=== PATIENT | male | born 1975 | race Caucasian/White ===

== ENCOUNTER 2024-10-16 10:40 | Emergency (ER) | payer OTHER, SELFPAY ==
[2024-10-16 10:45] VITALS: BP 131/86
[2024-10-16 11:12] VITALS: BP 142/85
[2024-10-16 11:54] VITALS: BMI 32.1
--- NOTE | 2024-10-16 11:58 | ED.GENMED ---
History of Present Illness
General
Chief Complaint: Chest Pain
Source: patient
Time Seen by Provider: 10/16/24 11:49
History of Present Illness
History of Present Illness:
48-year-old male presents to the emergency room complaining of left-sided chest pain. Pain has been present to 1 form or another for the past 2 weeks. Patient states that discomforts become more frequent and more persistent over the past few days.
Today the pain has been almost constant. Exertion seems to make it worse but it also can get worse without provocation. He does feel short of breath at times. Patient made an appointment with his credit collections rep for next week. However because the
pain was more significant today he thought he should be evaluated. Patient was recently hospitalized at [facility] for a left foot infection.
Past History
Past History
ED Past Medical History: CAD, HTN, Hypercholesterolemia, NIDDM, NC, Renal failure and Other (dvt)
ED Past Surgical History: Cardiac, Orthopedic (Right lower extremity BKA), Tonsilectomy and Other (right eye vitrectomy, left eye retina detachment)
Social History
Tobacco: Non-smoker
Alcohol: Occasional
Drug: None
Personal:
Living: with family
Employment: Retired
Phy Exam
Physical Exam
Physical Exam:
General: Awake, Alert, Oriented X3. No acute distress.
Vitals: unremarkable
Head: Atraumatic
Eyes: Pupils equal, EOMI
Throat: Airway intact, no exudates
Neck: Trachea midline
Lungs: Clear and equal b/l
Heart: Regular rate, no murmurs
Abd: Soft, Nontender, No pulsatile mass
Neuro: Nonfocal
Skin: Warm, dry, no rash
Extremities: pulses equal b/l, no edema. Right BKA
Scores
Heart Score for Chest Pain Patients
STEMI patient?: No
History: Slightly or Non-Suspicious
ECG: Nonspecific Repolarization
Age: >45 - <65 years
Risk Factors: 1 or 2 Risk Factors
Troponin: </= Normal Limit
Heart Score for Chest Pain Patients: 3
Heart Score Risk: 2.5% MACE over next 6 weeks
Course
Orders/Labs/Results
Orders:
Orders
10/16/24 10:41
ECG [Electrocardiogram (*1)] Urgent
Reason for Study: Chest Pain
EKG- Treatment ONCE
10/16/24 11:51
Complete Blood Count/With Diff Urgent
Comprehensive Metabolic Panel Urgent
Lipase Urgent
Troponin I Urgent
10/16/24 11:55
CR Chest - 2 Views Urgent
Comment:
Reason For Exam: chest pain
10/16/24 12:36
D-Dimer Urgent
Abnormal Lab Results
10/16/24
11:51
Absolute Lymphs (auto) 0.7 L 10^3/uL
(1.2-3.4)
Absolute Eos (auto) 1.3 H 10^3/uL
(0-0.7)
Lymphocytes % 8.7 L %
(20.5-51.1)
Eosinophils % 15.6 H %
(0-6)
BUN 22 H mg/dl
(9-20)
Creatinine 1.5 H mg/dL
(0.7-1.3)
Glucose 204 H mg/dl
(70-99)
10/16/24 11:51
10/16/24 11:51
Vital Signs
Initial and Last Documented VS:
Initial Vital Signs
Temp Pulse Resp BP Pulse Ox
97.4 F 72 16 131/86 98
10/16/24 10:45 10/16/24 10:45 10/16/24 10:45 10/16/24 10:45 10/16/24 10:45
Last Documented Vital Signs
Temp Pulse Resp BP Pulse Ox
97.4 F 68 13 127/82 96
10/16/24 10:45 10/16/24 15:00 10/16/24 15:00 10/16/24 15:00 10/16/24 14:00
MDM/Problems Addressed
Differential Diagnosis Includes:
NSTEMI, ACS, chest wall pain, pneumothorax, PE
MDM/Problems Addressed:
Patient presents with left-sided chest pain. No ischemic changes on EKG. Troponin is normal. Troponin was drawn greater than 3 hours after the onset of his discomfort today. D-dimer is normal. Patient is not tachycardic. He is not hypoxic. He
is not tachypneic. Unclear etiology of the patient's chest pain but we have adequately excluded PE or ACS. Recommend cardiology follow-up and the patient does not fact have a appointment with his credit collections rep in the coming week. We still put him
on the chest pain hotline. Stable for discharge home. Return for any concerns.
*Radiology
Radiology exam reviewed: preliminary read by ED provider (No acute disease on my review of the patient's chest x-ray)
*Pulse Oximetry
SaO2: 98
Oxygen Mode of Delivery: Room air
Patient hypoxic: no
*EKG
Interpreted by ED Provider?: Yes
Heart Rate: 68
Rate: normal
Rhythm: sinus
QRS Pattern: right bundle branch block
Ischemia: non-specific ST changes
*Regional Guide Interpretation
Rate: normal
Interpretation: normal
Rhythm: sinus
*Critical Care Note
Total Time (30-74mins, 75-104mins- exclusive of procedures): Not Applicable
ED Attending Note
-
Portions of this chart may have been created with voice recognition software.� Occasional wrong word or��sound alike� substitutions may have occurred due to the inherent limitations of voice recognition software.
Discharge Plan
Departure
Patient Disposition: Home (Routine Discharge)
Date of Disposition: 10/16/24
Time of Disposition: 13:42
Patient with high blood pressure during this ER visit?: No
Condition: Good
Discharge Problem:
Chest pain
Instructions: Chest Pain DCA Follow Up
Prescriptions:
No Action
ranolazine 500 MG tablet extended release 12 hr
1,000 mg PO BID
hydralazine 50 MG tablet
75 mg PO BID
rosuvastatin [Crestor] 40 MG tablet
40 mg PO DAILY
clopidogrel 75 MG tablet
75 mg PO DAILY Qty: 90 3RF
insulin glargine [Lantus U-100 Insulin] 1,000 UNITS/10 ML solution
65 units SC HS
metoprolol succinate 50 MG tablet extended release 24 hr
50 mg PO HS
aspirin 81 MG tablet,delayed release (DR/EC)
81 mg PO DAILY
insulin lispro [Humalog U-100 Insulin] 100 UNIT/ML solution
30 - 35 unit SC AC
Patient Comments:
80-120 0 units
121-200 20 units
201-250 25 units
251-300 30 units
metoprolol succinate 100 MG tablet extended release 24 hr
100 mg PO DAILY
isosorbide mononitrate 30 MG tablet extended release 24 hr
30 mg PO DAILY Qty: 1 0RF
nitroglycerin 0.4 MG tablet, sublingual
0.4 mg sublingual [id number] PRN (Reason: chest pain) Qty: 25 0RF
amlodipine 5 MG tablet
5 mg PO BID Qty: 60 11RF
Rx Instructions:
Increase amlodipine to 5 mg (two 2.5 mg tablets or one 5 mg tablet) twice a day
pregabalin 25 MG capsule
25 mg PO BID Qty: 60 6RF
Referrals:
Tea Arboleda MD [Family Provider, Family Practice]
Interventions
Interventions:
*Risk Screen - Suicide Last Done: 10/16/24 10:45
*General Assessment Last Done: 10/16/24 11:54
*Neglect/Abuse Screening Last Done: 10/16/24 10:45
*ED- Fall Risk Assessment Last Done: 10/16/24 15:09
*ED COVID-19 Vaccine History Last Done: 10/16/24 11:54
*Nursing Disposition Last Done: 10/16/24 15:09
ED- Cardiac Assessment Last Done: 10/16/24 12:15
Discharge Date and Time
Discharge Date/Time: 10/16/24 15:10
Print Language: AUSTRALIAN
[2024-10-16 12:00] VITALS: BP 144/90
[2024-10-16 12:01] LABS: Hematocrit 48.8 % (39.0-52.0); Hemoglobin 16.3 g/dL (13.0-18.0); Mean Corp Hgb Conc. 33.4 g/dL (33.0-37.0); Mean Corpuscular Volume 87.1 fL (80.0-94.0); Nucleated Red Blood Cells % 0 % (-); Platelet Count 133 10^3/uL (130-400); Red Cell Dist. Width 13.2 % (11.5-14.5)
[2024-10-16 12:30] LABS: Troponin I < 0.012 ng/ml
[2024-10-16 12:35] LABS: ALT (SGPT) 36 U/L (0-50); AST (SGOT) 20 U/L (17-59); Albumin 4.0 g/dl (3.5-5.0); Alkaline Phosphatase 89 U/L (38-126); Blood Urea Nitrogen 22 mg/dl (9-20); Calcium 9.4 mg/dl (8.4-10.2); Carbon Dioxide 27 mmol/L (22-30); Chloride 105 mmol/L (98-107); Estimated Creatinine Clearance 70 ml/min; Glucose 204 mg/dl (70-99); Lipase 118 U/L (23-300); Potassium 5.0 mmol/L (3.5-5.1); Sodium 137 mmol/L (135-145); Total Protein 6.3 g/dl (6.3-8.2); eGFR 56.37
[2024-10-16 12:57] LABS: D-Dimer 0.39 ug/mlFEU (0.00-0.50)
[2024-10-16 13:21] VITALS: BP 131/80
[2024-10-16 14:00] VITALS: BP 119/81
[2024-10-16 15:00] VITALS: BP 127/82
== END 2024-10-16 15:10 | disposition home or self-care (01) ==
LOC: EMR 10:40
PROVIDERS: EMERGENCY PHYSICIAN Emergency Medicine; FAMILY PHYSICIAN Family Medicine
DX: R07.9 Chest pain, unspecified (principal); E11.9 Type 2 diabetes mellitus without complications; I25.10 Atherosclerotic heart disease of native coronary artery without angina pectoris; I10 Essential (primary) hypertension; E78.00 Pure hypercholesterolemia, unspecified; I45.10 Unspecified right bundle-branch block; I25.2 Old myocardial infarction; Z86.718 Personal history of other venous thrombosis and embolism; Z79.4 Long term (current) use of insulin; Z79.02 Long term (current) use of antithrombotics/antiplatelets; Z79.82 Long term (current) use of aspirin; Z89.511 Acquired absence of right leg below knee
CPT/HCPCS: 99284; 71046; 80053; 83690; 84484; 85025; 85379; 93005